=== PATIENT | female | born 1985 | race American Indian/Alaskan Native ===

== ENCOUNTER 2018-08-29 14:57 | Emergency (ER) | payer OTHER ==
[2018-08-29 15:26] VITALS: BP 139/89
== END 2018-08-29 16:00 | disposition left against medical advice (07) ==
LOC: ED 14:57
DX: M54.2 Cervicalgia (principal); Z53.21 Procedure and treatment not carried out due to patient leaving prior to being seen by health care provider

== ENCOUNTER 2022-04-12 07:00 | Emergency (ER) | payer OTHER ==
[2022-04-12 07:31] VITALS: BP 115/75
--- NOTE | 2022-04-12 08:25 | XRay Report ---
XR chest routine 2V INDICATION / CLINICAL INFORMATION: cough. COMPARISON: 10/26/2010 FINDINGS: SUPPORT DEVICES: None. HEART /PULMONARY VASCULATURE: No significant abnormality. LUNGS / PLEURA: No significant pulmonary or pleural abnormality. No pneumothorax. ADDITIONAL FINDINGS: No significant additional findings. IMPRESSION: 1. No acute findings. Signer Name: Wicho Machado MD Signed: 04/12/2022 8:21 AM Workstation Name: [id number]
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
[2022-04-12] MEDS ORDERED: IBUPROFEN 800 MG TAB PO ONE (10:31)
== END 2022-04-13 09:39 | disposition left against medical advice (07) ==
LOC: ED 07:00
DX: R51.9 Headache, unspecified (principal); Z53.21 Procedure and treatment not carried out due to patient leaving prior to being seen by health care provider
CPT/HCPCS: 71046